=== PATIENT | female | born 1965 | race Caucasian/White ===

== ENCOUNTER 2020-01-11 07:41 | Day surgery (SDC) | payer BC ==
[~2020-01-11 07:41] MED LIST: Bupivacaine 0.5% 10 ML SDV ONE; Lactated Ringers 1,000 ML IV SCH; Lidocaine 1% 20 ML MDV ONE
[2020-01-11] MEDS ORDERED: Propofol 200 MG/20 ML SDV ONE (07:50)
[2020-01-11] MEDS ORDERED: fentaNYL 100 MCG/2 ML SDV ONE (07:50)
[2020-01-11] MEDS ORDERED: Ondansetron 4 MG/2 ML SDV ONE (07:50)
[2020-01-11] MEDS ORDERED: Midazolam 1 MG/ML 2 ML SDV ONE (07:50)
[2020-01-11] MEDS ORDERED: Rocuronium Bromide 50 MG/5 ML Syringe ONE (07:50)
--- NOTE | 2020-01-11 08:18 | PCM.PREANE ---
Preanesthetic Assessment - Anesthesia/Transfusion/Family Hx Anesthesia History: Prior Anesthesia Without Reaction Family History of Anesthesia Reaction: No Transfusion History: No Prior Transfusion(s) - Review of Systems General: No Symptoms Pulmonary: No Symptoms Cardiovascular: No Symptoms Gastrointestinal: No Symptoms Neurological: No Symptoms Other: Reports: None - Physical Assessment NPO Status Date: 01/10/20 Height: 5 ft 7 in Weight: 97.069 kg ASA Class: 2 Mental Status: Alert & Oriented x3 Airway Class: Mallampati = 2 Dentition: Reports: Normal Dentition ROM/Head Extension: Full Lungs: Clear to Auscultation, Normal Respiratory Effort Cardiovascular: Regular Rate, Regular Rhythm - Allergies Allergies/Adverse Reactions: Allergies Allergy/AdvReac Type Severity Reaction Status Date / Time codeine Allergy Itching Verified 01/05/20 14:56 - Blood Blood Available: No - Anesthesia Plan Pre-Op Medication Ordered: None - Acknowledgements Anesthesia Type Planned: General Anesthesia Pt an Appropriate Candidate for the Planned Anesthesia: Yes Alternatives and Risks of Anesthesia Discussed w Pt/Guardian: Yes Pt/Guardian Understands and Agrees with Anesthesia Plan: Yes Additional Comments: pmh: htn, dm2 PreAnesthesia Questionnaire HEENT History: Reports: Other (See Below) Other HEENT History: wears glasses, has upper and lower removable partial dentures Cardiovascular History: Reports: Hypertension Respiratory History: Reports: Asthma, Bronchitis, Recurrent, COPD Other Respiratory History: has not had recurrent bronchitis or COPD and Asthma symptoms since she quit smoking 5 years ago, does not use any inhalers Gastrointestinal History: Reports: GERD, Hiatal Hernia Genitourinary History: Reports: Renal Calculus Other Genitourinary History: hx of passing one stone HOMEBIRTH MIDWIFE History: Reports: Other OB/BYN History: OVARIAN CYST Neurological History: Reports: Other (See Below) Other Neuro History: has "burning" pain in feet after long days at work, was prescribed a medication but doesn't take it Psychiatric History: Reports: Anxiety Endocrine/Metabolic History: Reports: Diabetes, Type II, Obesity/BMI 30+ Oncologic (Cancer) History: Reports: Malignant Melanoma Dermatologic History: Reports: Melanoma - Infectious Disease History Infectious Disease History: Reports: Chicken Pox - Past Surgical History Head Surgeries/Procedures: Reports: None GI Surgical History: Reports: Appendectomy, Colonoscopy Female Surgical History: Reports: Hysterectomy, Other (See Below) Other Female Surgeries/Procedures: hx of pelvic laparoscopy Dermatological Surgical History: Reports: Skin Biopsy - SUBSTANCE USE Smoking Status *Q: Former Smoker Tobacco Use Within Last Twelve Months: No Recreational Drug Use History: No - HOME MEDS Home Medications: Home Meds Zolpidem Tartrate [Zolpidem Tartrate ER] 12.5 mg PO BEDTIME PRN 01/03/15 [History] Metoprolol Succinate [Toprol XL 100mg] 100 mg PO BEDTIME 03/03/18 [History] cloNIDine HCL [Catapres] 0.2 mg PO BEDTIME PRN 03/03/18 [History] Amylase/Lipase/Protease [Creon DR 24,000 Unit] 24,000 unit PO TID 01/05/20 [History] Pioglitazone HCl 15 mg PO QAM 01/05/20 [History] - CURRENT (IN HOUSE) MEDS Current Meds: Current Medications Lactated Ringer's (Ringers, Lactated) 1,000 mls @ 125 mls/hr IV ASDIRECTED [place]AL[place] Discontinued Medications Bupivacaine HCl (Sensorcaine-Mpf 0.5%) Confirm Administered Dose 10 ml .ROUTE .STK-MED ONE Stop: 01/11/20 07:21 Fentanyl (Sublimaze) Confirm Administered Dose 100 mcg .ROUTE .STK-MED ONE Stop: 01/11/20 07:51 Lidocaine HCl (Xylocaine 1%) Confirm Administered Dose 20 ml .ROUTE .STK-MED ONE Stop: 01/11/20 07:21 Lidocaine HCl (Xylocaine-Mpf 1%) Confirm Administered Dose 5 ml .ROUTE .STK-MED ONE Stop: 01/11/20 07:51 Midazolam HCl (Versed 1 Mg/Ml) Confirm Administered Dose 2 mg .ROUTE .STK-MED ONE Stop: 01/11/20 07:51 Ondansetron HCl (Zofran) Confirm Administered Dose 4 mg .ROUTE .STK-MED ONE Stop: 01/11/20 07:51 Propofol (Diprivan 20 Ml) Confirm Administered Dose 200 mg .ROUTE .STK-MED ONE Stop: 01/11/20 07:51 Rocuronium Kulm (Rocuronium Kulm) Confirm Administered Dose 50 mg .ROUTE .STK-MED ONE Stop: 01/11/20 07:51
[2020-01-11] MEDS ORDERED: Dexamethasone 4 MG/ML 5 ML MDV ONE (08:38)
[2020-01-11] MEDS ORDERED: Glycopyrrolate 0.2 MG/ML SDV ONE ×2 (08:52)
--- NOTE | 2020-01-11 09:41 | PCM.PREANE ---
Preanesthetic Assessment - Anesthesia/Transfusion/Family Hx Anesthesia History: Prior Anesthesia Without Reaction Family History of Anesthesia Reaction: No Transfusion History: No Prior Transfusion(s) - Review of Systems General: No Symptoms Pulmonary: No Symptoms Cardiovascular: No Symptoms Gastrointestinal: No Symptoms Neurological: No Symptoms Other: Reports: None - Physical Assessment NPO Status Date: 01/10/20 Vital Signs: Last Vital Signs Temp 97.8 F 01/11/20 09:33 Pulse 75 01/11/20 09:33 Resp 12 01/11/20 09:33 BP 159/89 H 01/11/20 09:33 Pulse Ox 95 01/11/20 09:33 Height: 5 ft 7 in Weight: 97.069 kg ASA Class: 2 Mental Status: Alert & Oriented x3 Airway Class: Mallampati = 2 Dentition: Reports: Normal Dentition ROM/Head Extension: Full Lungs: Clear to Auscultation, Normal Respiratory Effort Cardiovascular: Regular Rate, Regular Rhythm - Allergies Allergies/Adverse Reactions: Allergies Allergy/AdvReac Type Severity Reaction Status Date / Time codeine Allergy Itching Verified 01/05/20 14:56 - Blood Blood Available: No - Anesthesia Plan Pre-Op Medication Ordered: None - Acknowledgements Anesthesia Type Planned: General Anesthesia Pt an Appropriate Candidate for the Planned Anesthesia: Yes Alternatives and Risks of Anesthesia Discussed w Pt/Guardian: Yes Pt/Guardian Understands and Agrees with Anesthesia Plan: Yes Additional Comments: PMH: hx MRSA in 2011, htn, ckd3 with egfr of 36, anxiety, chronic pain PLAN: ga/lma PreAnesthesia Questionnaire HEENT History: Reports: Other (See Below) Other HEENT History: wears glasses, has upper and lower removable partial dentures Cardiovascular History: Reports: Hypertension Respiratory History: Reports: Asthma, Bronchitis, Recurrent, COPD Other Respiratory History: has not had recurrent bronchitis or COPD and Asthma symptoms since she quit smoking 5 years ago, does not use any inhalers Gastrointestinal History: Reports: GERD, Hiatal Hernia Genitourinary History: Reports: Renal Calculus Other Genitourinary History: hx of passing one stone 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 History: Reports: Other OB/BYN History: OVARIAN CYST Neurological History: Reports: Other (See Below) Other Neuro History: has "burning" pain in feet after long days at work, was prescribed a medication but doesn't take it Psychiatric History: Reports: Anxiety Endocrine/Metabolic History: Reports: Diabetes, Type II, Obesity/BMI 30+ Oncologic (Cancer) History: Reports: Malignant Melanoma Dermatologic History: Reports: Melanoma - Infectious Disease History Infectious Disease History: Reports: Chicken Pox - Past Surgical History Head Surgeries/Procedures: Reports: None GI Surgical History: Reports: Appendectomy, Colonoscopy Female Surgical History: Reports: Hysterectomy, Other (See Below) Other Female Surgeries/Procedures: hx of pelvic laparoscopy Dermatological Surgical History: Reports: Skin Biopsy - SUBSTANCE USE Smoking Status *Q: Former Smoker Tobacco Use Within Last Twelve Months: No Recreational Drug Use History: No - HOME MEDS Home Medications: Home Meds Zolpidem Tartrate [Zolpidem Tartrate ER] 12.5 mg PO BEDTIME PRN 01/03/15 [History] Metoprolol Succinate [Toprol XL 100mg] 100 mg PO BEDTIME 03/03/18 [History] cloNIDine HCL [Catapres] 0.2 mg PO BEDTIME PRN 03/03/18 [History] Amylase/Lipase/Protease [Creon DR 24,000 Unit] 24,000 unit PO TID 01/05/20 [History] Pioglitazone HCl 15 mg PO QAM 01/05/20 [History] - CURRENT (IN HOUSE) MEDS Current Meds: Current Medications Lactated Ringer's (Ringers, Lactated) 1,000 mls @ 125 mls/hr IV ASDIRECTED [facility], 1928–1983 Last Admin: 01/11/20 08:29 Dose: 125 mls/hr Documented by: Discontinued Medications Bupivacaine HCl (Sensorcaine-Mpf 0.5%) Confirm Administered Dose 10 ml .ROUTE .STK-MED ONE Stop: 01/11/20 07:21 Dexamethasone (Dexamethasone) Confirm Administered Dose 20 mg .ROUTE .STK-MED ONE Stop: 01/11/20 08:39 Fentanyl (Sublimaze) Confirm Administered Dose 100 mcg .ROUTE .STK-MED ONE Stop: 01/11/20 07:51 Glycopyrrolate (Robinul) Confirm Administered Dose 0.2 mg .ROUTE .STK-MED ONE Stop: 01/11/20 08:53 Glycopyrrolate (Robinul) Confirm Administered Dose 0.2 mg .ROUTE .STK-MED ONE Stop: 01/11/20 08:53 Lidocaine HCl (Xylocaine 1%) Confirm Administered Dose 20 ml .ROUTE .STK-MED ONE Stop: 01/11/20 07:21 Lidocaine HCl (Xylocaine-Mpf 1%) Confirm Administered Dose 5 ml .ROUTE .STK-MED ONE Stop: 01/11/20 07:51 Midazolam HCl (Versed 1 Mg/Ml) Confirm Administered Dose 2 mg .ROUTE .STK-MED ONE Stop: 01/11/20 07:51 Ondansetron HCl (Zofran) Confirm Administered Dose 4 mg .ROUTE .STK-MED ONE Stop: 01/11/20 07:51 Propofol (Diprivan 20 Ml) Confirm Administered Dose 200 mg .ROUTE .STK-MED ONE Stop: 01/11/20 07:51 Rocuronium [place] (Rocuronium [place]) Confirm Administered Dose 50 mg .ROUTE .STK-MED ONE Stop: 01/11/20 07:51
[2020-01-11] MEDS ORDERED: Morphine 10 MG/ML Syringe IVPUSH PRN (09:43)
[2020-01-11] MEDS ORDERED: Ketorolac 10 MG Tab PO PRN (09:43)
[2020-01-11] MEDS ORDERED: Ondansetron 4 MG/2 ML SDV IVPUSH PRN (09:43)
[2020-01-11] MEDS ORDERED: Lactated Ringers 1,000 ML IV SCH (09:45)
--- NOTE | 2020-01-11 09:49 | PCM.OPNOTE ---
- General Post-Op/Procedure Note Date of Surgery/Procedure: 01/11/20 Operative Procedure(s): Wide local excision, superficial spreading melanoma of the left buttock. Layered 9 cm closure. 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
[2020-01-11] MEDS ORDERED: Ketorolac 30 MG/ML SDV IVPUSH ONE (10:10)
[2020-01-11] MEDS ORDERED: Acetaminophen 1,000 MG in Premix Bag 1 BAG IV ONE (10:10)
[2020-01-11] MEDS ORDERED: oxyCODONE 5 MG Tab PO ONE (11:08)
[2020-01-11] MEDS ORDERED: oxyCODONE ER 10 MG TAB.ER ONE (11:12)
--- NOTE | 2020-01-11 11:50 | PCM48HPAN ---
Post Anesthesia Note - EVALUATION WITHIN 48HRS OF ANESTHETIC Vital Signs in Normal Range: Yes Patient Participated in Evaluation: Yes Respiratory Function Stable: Yes Airway Patent: Yes Cardiovascular Function Stable: Yes Hydration Status Stable: Yes Pain Control Satisfactory: Yes Nausea and Vomiting Control Satisfactory: Yes Mental Status Recovered: Yes Vital Signs: Last Vital Signs Temp 97.8 F 01/11/20 09:33 Pulse 66 01/11/20 09:58 Resp 14 01/11/20 09:58 BP 136/79 01/11/20 09:58 Pulse Ox 97 01/11/20 09:58
--- NOTE | 2020-01-11 11:50 | PCM.POSTAN ---
POST ANESTHESIA ASSESSMENT - MENTAL STATUS Mental Status: Alert, Oriented - VITAL SIGNS Vital Signs: Last Vital Signs Temp 97.8 F 01/11/20 09:33 Pulse 66 01/11/20 09:58 Resp 14 01/11/20 09:58 BP 136/79 01/11/20 09:58 Pulse Ox 97 01/11/20 09:58 - RESPIRATORY Respiratory Status: Respiratory Rate WNL, Airway Patent, O2 Saturation Stable - CARDIOVASCULAR CV Status: Pulse Rate WNL, Blood Pressure Stable - GASTROINTESTINAL GI Status: No Symptoms - POST OP HYDRATION Hydration Status: Adequate & Stable
[2020-01-11 12:52] VITALS: BP 112/73; PULSE 64
[2020-01-11] MEDS ORDERED: Neomycin/Polymyxin B Bladder Irrigation 1 ML Amp ONE (13:24)
--- NOTE | 2020-01-11 16:20 | OR ---
SURGEON: Jayson Sanders M.D. DATE OF PROCEDURE: 01/11/2020 OPERATION PERFORMED: Wide local excision, superficial spreading melanoma, left buttock. PRIMARY SURGEON: Jayson Sanders M.D. DRY CLEANER PRESSER: Prop Making Supervisor: TEO Esquivel student. ANESTHESIA: General endotracheal. ASA CLASSIFICATION: 2. PREOPERATIVE DIAGNOSIS: Biopsy-proven superficial spreading melanoma. POSTOPERATIVE DIAGNOSIS: Biopsy-proven superficial spreading melanoma. ESTIMATED BLOOD LOSS: 10 mL. INTRAOPERATIVE FLUID REPLACEMENT: 700 mL of crystalloid. DESCRIPTION OF PROCEDURE: The patient was taken to the operating room and kept on the transfer cart in the supine position. Time-out was called for appropriate identification of patient and procedure. The surgical site had been marked prior to the patient entering the operating room. Following satisfactory attainment of general endotracheal anesthesia, the patient was placed in the prone position with care taken to use axillary rolls and pad all bony prominences. The surgical site was then prepped with Betadine solution and sterile drapes were applied. Skin incisions were marked out in both a horizontal and vertical fashion. It was felt that the horizontal incision would give us a better closure. The skin was now infiltrated with 10 mL of 0.5% Marcaine solution. Skin incision was then made in an elliptical fashion to include a 1 cm margin superiorly and inferiorly. The total width of the incision was therefore 3 cm, with a length of 9 cm. Full- thickness skin and subcutaneous excision was accomplished using sharp dissection and electrocautery. Once the specimen was removed, this was marked with a 2-0 silk suture at the superior margin for identification purposes. With that accomplished, the wound was inspected for hemostasis and bleeding sites were electrocoagulated. The incision was irrigated with sterile saline solution. The wound was then closed in a layered fashion approximating the subcutaneous tissue with interrupted 2-0 Vicryl and the skin with interrupted 3-0 nylon sutures. The wound was then dressed with a sterile Tegaderm pad. Sponge, needle, and instrument counts were all correct. The patient was returned to the transfer cart to the supine position. Following emergence from anesthesia and extubation, she was taken to recovery room in stable condition. JOHN / MARIA GUADALUPE /[id number]
== END 2020-01-11 12:15 | disposition home or self-care (01) ==
LOC: MW.SDS 07:41
PROVIDERS: ATTEND Surgery
DX: C43.59 Malignant melanoma of other part of trunk (principal); Z98.890 Other specified postprocedural states; Z79.899 Other long term (current) drug therapy; Z87.891 Personal history of nicotine dependence; Z90.49 Acquired absence of other specified parts of digestive tract; Z02.82 Encounter for adoption services; Z88.5 Allergy status to narcotic agent; I12.9 Hypertensive chronic kidney disease with stage 1 through stage 4 chronic kidney disease, or unspecified chronic kidney disease; E11.22 Type 2 diabetes mellitus with diabetic chronic kidney disease; N18.30 Chronic kidney disease, stage 3 unspecified; F41.9 Anxiety disorder, unspecified; E66.9 Obesity, unspecified; J44.9 Chronic obstructive pulmonary disease, unspecified; Z68.31 Body mass index [BMI] 31.0-31.9, adult
CPT/HCPCS: 11606; 12034; 88305; A9270; J0131; J1100; J1885; J2001; J2250; J2270; J2704; J3010; J3490; J7120; 00300; J2405

== ENCOUNTER 2020-01-23 19:16 | Emergency (ER) | payer BC ==
[2020-01-23 19:43] VITALS: BP 174/76; PULSE 67
[2020-01-23] MEDS ORDERED: Acetaminophen/HYDROcodone 325-5 MG Tab PO ONE (20:25)
--- NOTE | 2020-01-23 20:33 | EDM.PDOC ---
ED HPI GENERAL MEDICAL PROBLEM - General Chief Complaint: Skin Complaint Stated Complaint: wound check Time Seen by Provider: 01/23/20 20:13 - History of Present Illness INITIAL COMMENTS - FREE TEXT/NARRATIVE: CHIEF COMPLAINT(S): Wound evaluation HISTORY OF PRESENT ILLNESS: This is a 54-year-old woman with a past medical history of melanoma status post surgical removal recently who comes to the emergency department with a chief complaint of wound evaluation. The patient states that approximately 3 days ago her sutures were removed and then approximately 2 days ago she noticed that her wound had opened up. She states that she followed up with her surgeon Dr. Kat who stated that that was okay at that time. She states that she returns to the emergency department today for evaluation as she realized that the wound had opened up more and that she is experiencing pain. She states that she is taking Dozier at home for pain relief which does bring the pain down. She denies any purulent drainage, surrounding erythema, fever, or chills. REVIEW OF SYSTEMS: Constitutional: Denies fever, chills. Eyes: Denies eye pain Ears, Nose, Mouth, & Throat: Denies earache Cardiovascular: Denies chest pain Respiratory: Denies shortness of breath Gastrointestinal: Denies Nausea, vomiting, diarrhea, hematochezia. Genitourinary: Denies hematuria Skin: Positive for postsurgical open wound and pain Neurological: Denies blurred vision Psychiatric: Denies depression PAST MEDICAL HISTORY: As per history of present illness and as reviewed below otherwise noncontributory. SURGICAL HISTORY: As per history of present illness and as reviewed below otherwise noncontributory. SOCIAL HISTORY: As per history of present illness and as reviewed below otherwise noncontributory. FAMILY HISTORY: As per history of present illness and as reviewed below otherwise noncontributory. EXAMINATION OF ORGAN SYSTEMS/BODY AREAS: Constitutional: Blood pressure was 174/76, heart rate 67, respiratory rate 18 with an oxygen saturation 96% on room air. Temperature 35.6 General: Overall well-appearing woman who is in no acute distress Psychiatric: Appropriate mood and affect. Eyes: No scleral icterus or conjunctival erythema ENMT: Moist mucous membranes. No pharyngeal erythema Cardiovascular: Regular, rate, and rythym. No gallops, murmurs, or rubs. Respiratory: Lungs clear to auscultation bilaterally. No wheezes, rales, or r honchi. Gastrointestinal: Soft, non-tender, non-distended. Normoactive bowel sounds wound was inspected with RN eric present. There is a wound on the patient's left upper buttocks with a central area that is open without any bone exposed. This open area measures approximately 2 cm x 1 cm. No purulent drainage or fluctuance is present. There is a dressing with clear/yellowish fluid on it. No surrounding erythema. The bilateral distal ends of the wound appear to be well-healed with a suture scar. Genitourinary: No suprapubic tenderness Musculoskeletal: Normal range of motion. Skin: No lesions or abrasions. Neurological: Alert, GCS 15 MEDICAL DECISION MAKING AND COURSE IN THE ED WITH INTERPRETATION/REVIEW OF DIAGNOSTIC STUDIES: This is a 54-year-old woman man with a recent melanoma excision who comes to the emergency department with open wound without any evidence of fluctuance, surrounding erythema. The patient is not tachycardic and is afebrile without any evidence of infection. I did contact the patient's surgeon regarding the open wound. We did have a discussion and he stated that this can be normal given that he had to do a pretty large removal and does not r ecommend antibiotics. He recommends new gauze to be placed into the wound, air drying it 4 times a day, and pain medications as needed. He states that she does have appointment on Saturday however she can come to the clinic 1 day early for evaluation. I did have a discussion with the patient regarding this plan and she is amenable to this plan. We did pack the patient's wound and placed a new bandage. The patient was amenable to discharge and had no further questions. DISPOSITION: The patient was discharged home in stable condition. The patient will follow up with Dr. Kat in approximately 2 days CONDITION: Fair PROCEDURES: None FINAL IMPRESSION(S)/DIAGNOSES: 1. Acute encounter for postoperative wound evaluation Kt Dick M.D. buttock Pain Score (Numeric/FACES): 5 - Related Data Allergies Allergy/AdvReac Type Severity Reaction Status Date / Time codeine Allergy Itching Verified 01/05/20 14:56 Home Meds: Home Meds Zolpidem Tartrate [Zolpidem Tartrate ER] 12.5 mg PO BEDTIME PRN 01/03/15 [History] Metoprolol Succinate [Toprol XL 100mg] 100 mg PO BEDTIME 03/03/18 [History] cloNIDine HCL [Catapres] 0.2 mg PO BEDTIME PRN 03/03/18 [History] Amylase/Lipase/Protease [Manohar BUSTAMANTE 24,000 Unit] 24,000 unit PO TID 01/05/20 [History] Pioglitazone HCl 30 mg PO QAM 01/05/20 [History] Hydrocodone/Acetaminophen [Hydrocodone-Acetamin 5-325 mg] 1 tab PO ASDIRECTED PRN 01/23/20 [History] Past Medical History HEENT History: Reports: Other (See Below) Other HEENT History: wears glasses, has upper and lower removable partial dentures Cardiovascular History: Reports: Hypertension Respiratory History: Reports: Asthma, Bronchitis, Recurrent, COPD Other Respiratory History: has not had recurrent bronchitis or COPD and Asthma symptoms since she quit smoking 5 years ago, does not use any inhalers Gastrointestinal History: Reports: GERD, Hiatal Hernia Genitourinary History: Reports: Renal Calculus Other Genitourinary History: hx of passing one stone MID LEVEL PROVIDER History: Reports: Other MID LEVEL PROVIDER History: OVARIAN CYST Neurological History: Reports: Other (See Below) Other Neuro History: has "burning" pain in feet after long days at work, was prescribed a medication but doesn't take it Psychiatric History: Reports: Anxiety Endocrine/Metabolic History: Reports: Diabetes, Type II, Obesity/BMI 30+ Oncologic (Cancer) History: Reports: Malignant Melanoma Dermatologic History: Reports: Melanoma - Infectious Disease History Infectious Disease History: Reports: Chicken Pox - Past Surgical History Head Surgeries/Procedures: Reports: None GI Surgical History: Reports: Appendectomy, Colonoscopy Female Surgical History: Reports: Hysterectomy, Other (See Below) Other Female Surgeries/Procedures: hx of pelvic laparoscopy Dermatological Surgical History: Reports: Skin Biopsy Social & Family History - Family History Family Medical History: Noncontributory - Tobacco Use Tobacco Use Status *Q: Former Tobacco User Used Tobacco, but Quit: Yes Month/Year Tobacco Last Used: 01/06/2015 - Caffeine Use Caffeine Use: Reports: Tea - Recreational Drug Use Recreational Drug Use: No ED ROS GENERAL - Review of Systems Review Of Systems: See Below ED EXAM, SKIN/RASH Exam: See Below Course - Vital Signs Last Recorded V/S: Last Vital Signs Temp 35.6 C L 01/23/20 19:31 Pulse 67 01/23/20 19:31 Resp 18 01/23/20 19:31 BP 174/76 H 01/23/20 19:31 Pulse Ox 96 01/23/20 19:31 - Orders/Labs/Meds Meds: Medications Discontinued Medications Generic Name Dose Route Start Last Admin Trade Name Nell PRN Reason Stop Dose Admin Hydrocodone Bitart/Acetaminophen 1 tab 01/23/20 20:25 01/23/20 20:33 Dozier 325-5 Mg PO 01/23/20 20:26 1 tab ONETIME ONE Administration Departure - Departure Time of Disposition: 20:26 Disposition: Home, Self-Care 01 Clinical Impression: Postoperative complication of skin involving drainage from surgical wound - Discharge Information *PRESCRIPTION DRUG MONITORING PROGRAM REVIEWED*: No *COPY OF PRESCRIPTION DRUG MONITORING REPORT IN PATIENT BRYANNA: No Instructions: Excision of Skin Lesions, Care After Referrals: Lakisha Davenport DO [Primary Care Provider] - Forms: ED Department Discharge Additional Instructions: The patient is informed of any results of their evaluation and diagnostic workup and all questions are answered. They are given discharge instructions and return precautions. The patient is stable for discharge. The patient states they understand and agree with the plan and that they will return if their symptoms get worse or if they have any new concerns. The following information is given to patients seen in the emergency department who are being discharged to home. This information is to outline your options for follow-up care. We provide all patients seen in our emergency department with a follow-up referral. The need for follow-up, as well as the timing and circumstances, are variable depending upon the specifics of your emergency department visit. If you don't have a primary care physician on staff, we will provide you with a referral. We always advise you to contact your personal physician following an emergency department visit to inform them of the circumstance of the visit and for follow-up with them and/or the need for any referrals to a consulting specialist. The emergency department will also refer you to a specialist when appropriate. This referral assures that you have the opportunity for follow-up care with a specialist. All of these measure are taken in an effort to provide you with optimal care, which includes your follow-up. Under all circumstances we always encourage you to contact your private physician who remains a resource for coordinating your care. When calling for follow-up care, please make the office aware that this follow-up is from your recent emergency room visit. If for any reason you are refused follow-up, please contact the [facility] Emergency Department at and asked to speak to the emergency department charge nurse. PLEASE FOLLOW UP WITH DR. KAT ON 01/25/20 at 10AM. RETURN WITH ANY NEW OR WORSENING SYMPTOMS Sepsis Event Note (ED) - Evaluation Sepsis Screening Result: No Definite Risk - Focused Exam Vital Signs: Vital Signs Temp Pulse Resp BP Pulse Ox 01/23/20 19:31 35.6 C L 67 18 174/76 H 96
== END 2020-01-23 20:41 | disposition home or self-care (01) ==
LOC: MW.ED 19:16
DX: L76.82 Other postprocedural complications of skin and subcutaneous tissue (principal); I10 Essential (primary) hypertension; J44.9 Chronic obstructive pulmonary disease, unspecified; E11.9 Type 2 diabetes mellitus without complications; E66.9 Obesity, unspecified; Z79.84 Long term (current) use of oral hypoglycemic drugs; Z88.5 Allergy status to narcotic agent; Z79.899 Other long term (current) drug therapy; Z87.891 Personal history of nicotine dependence
CPT/HCPCS: 99283; A9270; 99282

== ENCOUNTER 2020-12-20 19:59 | Observation (INO) | payer BC ==
[2020-12-20] MEDS ORDERED: Sodium Chloride 0.9% 2.5 ML Syringe FLUSH PRN (20:00)
[2020-12-20] MEDS ORDERED: Sodium Chloride 0.9% 10 ML Syringe FLUSH PRN (20:00)
--- NOTE | 2020-12-20 20:02 | EDM.PDOC ---
ED HPI GENERAL MEDICAL PROBLEM - General Stated Complaint: CHEST PAIN Time Seen by Provider: 12/20/20 19:59 Source of Information: Reports: Patient History Limitations: Reports: No Limitations - History of Present Illness INITIAL COMMENTS - FREE TEXT/NARRATIVE: 55-year-old female with history of HTN, DM presents with chest pain. Chest pain is localized to the left chest, described as dull aching sensation that is intermittent over the past 2 weeks. She also notes intermittent tingling sensation to the left neck last seconds. She notes increasing frequency to her left-sided chest pain over the past 2 weeks. Associated symptoms include shortness of breath, dyspnea on exertion, palpitation, nausea and sweats. She denies vomiting, back pain, abdominal pain. She has never undergone a stress te st. She used to smoke 1.5 PPD for 40 years but she quit 6 years ago. 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 ROS: A 10-point review of systems, other than pertinent positives and negatives as stated per HPI, is otherwise negative Past medical history: No additional pertinent history Past Surgical history: No additional pertinent history Social history: No additional pertinent history Family history: No additional pertinent history PHYSICAL EXAM General: AOx4, GCS = 15, No distress HEENT: dry mucous membrane Neck: supple, no meningismus, no Kernig or Brudzinski Cardiac: S1S2 RRR Respiratory: CTAB, no crackles or rales, no wheezing Abdomen: Soft, nontender, no rebound or guarding, nondistended, no pulsatile mass. Back: nontender Musculoskeletal: NVI distally, no deformity Neuro: No focal deficits, CN 2 - 12 WNL. - Related Data Allergies Allergy/AdvReac Type Severity Reaction Status Date / Time codeine Allergy Itching Verified 01/05/20 14:56 Home Meds: Home Meds Zolpidem Tartrate [Zolpidem Tartrate ER] 12.5 mg PO BEDTIME PRN 01/03/15 [History] Metoprolol Succinate [Toprol XL 100mg] 100 mg PO BEDTIME 03/03/18 [History] cloNIDine HCL [Catapres] 0.2 mg PO BEDTIME PRN 03/03/18 [History] Amylase/Lipase/Protease [Creon DR 24,000 Unit] 24,000 unit PO TID 01/05/20 [History] Pioglitazone HCl 30 mg PO QAM 01/05/20 [History] Hydrocodone/Acetaminophen [Hydrocodone-Acetamin 5-325 mg] 1 tab PO ASDIRECTED PRN 01/23/20 [History] Past Medical History HEENT History: Reports: Other (See Below) Other HEENT History: wears glasses, has upper and lower removable partial dentures Cardiovascular History: Reports: Hypertension Respiratory History: Reports: Asthma, Bronchitis, Recurrent, COPD Other Respiratory History: has not had recurrent bronchitis or COPD and Asthma symptoms since she quit smoking 5 years ago, does not use any inhalers Gastrointestinal History: Reports: GERD, Hiatal Hernia Genitourinary History: Reports: Renal Calculus Other Genitourinary History: hx of passing one stone 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 DATA CENTER ENGINEER History: OVARIAN CYST Neurological History: Reports: Other (See Below) Other Neuro History: has "burning" pain in feet after long days at work, was prescribed a medication but doesn't take it Psychiatric History: Reports: Anxiety Endocrine/Metabolic History: Reports: Diabetes, Type II, Obesity/BMI 30+ Oncologic (Cancer) History: Reports: Malignant Melanoma Dermatologic History: Reports: Melanoma - Infectious Disease History Infectious Disease History: Reports: Chicken Pox - Past Surgical History Head Surgeries/Procedures: Reports: None GI Surgical History: Reports: Appendectomy, Colonoscopy Female Surgical History: Reports: Hysterectomy, Other (See Below) Other Female Surgeries/Procedures: hx of pelvic laparoscopy Dermatological Surgical History: Reports: Skin Biopsy Social & Family History - Family History Family Medical History: No Pertinent Family History - Caffeine Use Caffeine Use: Reports: Tea ED ROS GENERAL - Review of Systems Review Of Systems: See Below (see dictation) ED EXAM, GENERAL - Physical Exam Exam: See Below (see dictation) #1 Interpretation EKG Interpretation Comments: Heart rate = 81 bpm, normal sinus rhythm, T wave inversion in III, normal QRS interval, no STEMI. EKG and rhythm strip interpreted by me at 1999 Course - Vital Signs Last Recorded V/S: Last Vital Signs Temp 97.3 F 12/20/20 20:02 Pulse 85 12/20/20 21:10 Resp 16 12/20/20 21:10 BP 129/60 12/20/20 21:10 Pulse Ox 96 12/20/20 21:10 - Orders/Labs/Meds Orders: Active Orders 24 hr Category Date Time Status Cardiac Monitoring [RC] . DIRECTED Care 12/20/20 20:00 Active Pulse Oximetry [RC] ASDIRECTED Care 12/20/20 20:00 Active B-TYPE NATRIURETIC PEPTIDE,BNP [CHEM] Stat Lab 12/20/20 20:12 Received Sodium Chloride 0.9% [Saline Flush] Med 12/20/20 20:00 Active 10 ml FLUSH ASDIRECTED PRN Sodium Chloride 0.9% [Saline Flush] Med 12/20/20 20:00 Active 2.5 ml FLUSH ASDIRECTED PRN Saline Lock Insert [OM.PC] Stat Oth 12/20/20 20:00 Ordered Medication Orders Sodium Chloride (Sodium Chloride 0.9% 10 Ml Syringe) 10 ml FLUSH ASDIRECTED PRN PRN Reason: Keep Vein Open Last Admin: 12/20/20 20:31 Dose: 10 ml Documented by: BRANDON Sodium Chloride (Sodium Chloride 0.9% 2.5 Ml Syringe) 2.5 ml FLUSH ASDIRECTED PRN PRN Reason: Keep Vein Open Last Admin: 12/20/20 20:30 Dose: 2.5 ml Documented by: BRANDON Labs: Laboratory Tests 12/20/20 12/20/20 12/20/20 Range/Units 20:12 20:12 20:12 WBC 7.30 (4.0-11.0) K/uL RBC 4.87 (4.30-5.90) M/uL Hgb 14.7 (12.0-16.0) g/dL Hct 42.2 (36.0-46.0) % MCV 86.7 (80.0-98.0) fL MCH 30.2 (27.0-32.0) pg MCHC 34.8 (31.0-37.0) g/dL RDW Std Deviation 42.0 (28.0-62.0) fl RDW Coeff of Lori 13 (11.0-15.0) % Plt Count 162 (150-400) K/uL MPV 12.10 H (7.40-12.00) fL Neut % (Auto) 52.7 (48.0-80.0) % Lymph % (Auto) 39.6 (16.0-40.0) % [place] % (Auto) 5.6 (0.0-15.0) % Eos % (Auto) 1.8 (0.0-7.0) % Baso % (Auto) 0.3 (0.0-1.5) % Neut # (Auto) 3.9 (1.4-5.7) K/uL Lymph # (Auto) 2.9 H (0.6-2.4) K/uL [place] # (Auto) 0.4 (0.0-0.8) K/uL Eos # (Auto) 0.1 (0.0-0.7) K/uL Baso # (Auto) 0.0 (0.0-0.1) K/uL Nucleated RBC % 0.0 /100WBC Nucleated RBCs # 0 K/uL INR 1.04 Sodium 140 (136-145) mmol/L Potassium 3.6 (3.5-5.1) mmol/L Chloride 102 (98-107) mmol/L Carbon Dioxide 26.3 (21.0-32.0) mmol/L BUN 7 (7.0-18.0) mg/dL Creatinine 0.9 (0.6-1.0) mg/dL Est Cr Clr Drug Dosing 67.07 mL/min Estimated GFR (MDRD) > 60.0 ml/min Glucose 141 H (74-106) mg/dL Calcium 9.5 (8.5-10.1) mg/dL Total Bilirubin 0.6 (0.2-1.0) mg/dL AST 41 H (15-37) IU/L ALT 64 H (14-63) IU/L Alkaline Phosphatase 114 (46-116) U/L Troponin I < 0.050 (0.000-0.056) ng/mL Total Protein 7.5 (6.4-8.2) g/dL Albumin 4.3 (3.4-5.0) g/dL Globulin 3.2 (2.6-4.0) g/dL Albumin/Globulin Ratio 1.3 (0.9-1.6) SARS-CoV-2 RNA (MARTIN) (NEGATIVE) 12/20/20 Range/Units 20:25 WBC (4.0-11.0) K/uL RBC (4.30-5.90) M/uL Hgb (12.0-16.0) g/dL Hct (36.0-46.0) % MCV (80.0-98.0) fL MCH (27.0-32.0) pg MCHC (31.0-37.0) g/dL RDW Std Deviation (28.0-62.0) fl RDW Coeff of Lori (11.0-15.0) % Plt Count (150-400) K/uL MPV (7.40-12.00) fL Neut % (Auto) (48.0-80.0) % Lymph % (Auto) (16.0-40.0) % [place] % (Auto) (0.0-15.0) % Eos % (Auto) (0.0-7.0) % Baso % (Auto) (0.0-1.5) % Neut # (Auto) (1.4-5.7) K/uL Lymph # (Auto) (0.6-2.4) K/uL [place] # (Auto) (0.0-0.8) K/uL Eos # (Auto) (0.0-0.7) K/uL Baso # (Auto) (0.0-0.1) K/uL Nucleated RBC % /100WBC Nucleated RBCs # K/uL INR Sodium (136-145) mmol/L Potassium (3.5-5.1) mmol/L Chloride (98-107) mmol/L Carbon Dioxide (21.0-32.0) mmol/L BUN (7.0-18.0) mg/dL Creatinine (0.6-1.0) mg/dL Est Cr Clr Drug Dosing mL/min Estimated GFR (MDRD) ml/min Glucose (74-106) mg/dL Calcium (8.5-10.1) mg/dL Total Bilirubin (0.2-1.0) mg/dL AST (15-37) IU/L ALT (14-63) IU/L Alkaline Phosphatase (46-116) U/L Troponin I (0.000-0.056) ng/mL Total Protein (6.4-8.2) g/dL Albumin (3.4-5.0) g/dL Globulin (2.6-4.0) g/dL Albumin/Globulin Ratio (0.9-1.6) SARS-CoV-2 RNA (MARTIN) NEGATIVE (NEGATIVE) Meds: Medications Generic Name Dose Route Start Last Admin Trade Name Freq PRN Reason Stop Dose Admin Sodium Chloride 10 ml 12/20/20 20:00 12/20/20 20:31 Sodium Chloride 0.9% 10 Ml Syringe FLUSH 10 ml ASDIRECTED PRN Administration Keep Vein Open Sodium Chloride 2.5 ml 12/20/20 20:00 12/20/20 20:30 Sodium Chloride 0.9% 2.5 Ml Syringe FLUSH 2.5 ml ASDIRECTED PRN Administration Keep Vein Open Discontinued Medications Generic Name Dose Route Start Last Admin Trade Name Freq PRN Reason Stop Dose Admin Aspirin 324 mg 12/20/20 20:20 12/20/20 20:28 Aspirin 81 Mg Tab.Chew PO 12/20/20 20:21 324 mg ONETIME ONE Administration Morphine Sulfate 4 mg 12/20/20 21:40 Morphine 4 Mg/Ml Syringe IVPUSH 12/20/20 21:41 ONETIME ONE Nitroglycerin 0.4 mg 12/20/20 20:20 12/20/20 21:07 Nitroglycerin 0.4 Mg Tab.Sl SL 0.4 mg Q5M PRN Administration Chest Pain - Re-Assessments/Exams Free Text/Narrative Re-Assessment/Exam: 12/20/20 20:26 Ordered 324 ASA and 3 sublingual nitroglycerin for chest pain rated 3/10. 12/20/20 21:[address] Cavazos, who agrees to admit patient. The hospitalist's documentation supersedes all other documentation on this patient with regard to any conflicts or discrepancies from this point forward. Any emergency conditions have been treated to the ability of the ED prior to admission. MEDICAL DECISION MAKING: I reviewed the patients past medical records, lab and radiographic findings. I discussed the case with the patient. My differential diagnosis included: Atypical chest pain, unstable angina, hypertensive emergency. Her hypertension improved after 3 sublingual nitroglycerin, her chest pain improved after nitroglycerin and morphine. Troponin unremarkable chest x-ray unremarkable. Clinical history does not suggest pulmonary embolism. She has no radiating pain to her back, and exhibited symmetrical upper extremity pulses, I personally reviewed her chest x-ray which did not not demonstrate wide mediastinum, I do not suspect aortic dissection. Her abdomen was soft and nontender, I do not suspect intra-abdominal etiology. Departure - Departure Time of Disposition: 21:46 Disposition: Refer to Observation Condition: Good Clinical Impression: Atypical chest pain Hypertension Qualifiers: Hypertension type: essential hypertension Qualified Code(s): I10 - Essential (primary) hypertension - Discharge Information *PRESCRIPTION DRUG MONITORING PROGRAM REVIEWED*: Not Applicable *COPY OF PRESCRIPTION DRUG MONITORING REPORT IN PATIENT BRYANNA: Not Applicable Referrals: Lakisha Davenport DO [Primary Care Provider] - Sepsis Event Note (ED) - Focused Exam Vital Signs: Vital Signs Temp Pulse Resp BP BP Pulse Ox 12/20/20 21:10 85 16 129/60 96 12/20/20 21:07 129/90 12/20/20 20:41 140/90 12/20/20 20:30 147/94 H 12/20/20 20:02 97.3 F 82 18 164/101 H 95 - My Orders Last 24 Hours: My Active Orders 12/20/20 20:00 Cardiac Monitoring [RC] . DIRECTED Pulse Oximetry [RC] ASDIRECTED Sodium Chloride 0.9% [Saline Flush] 10 ml FLUSH ASDIRECTED PRN Sodium Chloride 0.9% [Saline Flush] 2.5 ml FLUSH ASDIRECTED PRN Saline Lock Insert [OM.PC] Stat 12/20/20 20:12 B-TYPE NATRIURETIC PEPTIDE,BNP [CHEM] Stat - Assessment/Plan Last 24 Hours: My Active Orders 12/20/20 20:00 Cardiac Monitoring [RC] . DIRECTED Pulse Oximetry [RC] ASDIRECTED Sodium Chloride 0.9% [Saline Flush] 10 ml FLUSH ASDIRECTED PRN Sodium Chloride 0.9% [Saline Flush] 2.5 ml FLUSH ASDIRECTED PRN Saline Lock Insert [OM.PC] Stat 12/20/20 20:12 B-TYPE NATRIURETIC PEPTIDE,BNP [CHEM] Stat
[2020-12-20] MEDS ORDERED: Aspirin 81 MG Tab.Chew PO ONE (20:20)
[2020-12-20] MEDS: Nitroglycerin 0.4 MG Tab.SL SL PRN ×3 (20:30→21:07)
[2020-12-20 20:41] LABS: BLOOD UREA NITROGEN,BUN 7 mg/dL (7.0-18.0); CARBON DIOXIDE,CO2 26.3 mmol/L (21.0-32.0); CHLORIDE,CL 102 mmol/L (98-107); GLUCOSE RANDOM 141 mg/dL (74-106); POTASSIUM,K 3.6 mmol/L (3.5-5.1); SODIUM,NA 140 mmol/L (136-145)
--- NOTE | 2020-12-20 20:53 | CR ---
Indication: Chest pain Technique: Chest 1 view Comparison: Chest x-ray 03/03/2018 Findings/Impression: Cardiovascular and mediastinum: Heart size and vasculature are normal in caliber and appearance. Lungs and pleural space: Lungs are clear. No sign of infiltrate or mass. No sign of pleural effusion. No pneumothorax. Bones and soft tissues: No acute findings. Dictated by Maged Aiken MD @ 12/20/2020 8:52:22 PM (Electronically Signed)
[2020-12-20] MEDS ORDERED: Morphine 4 MG/ML Syringe IVPUSH ONE (21:40)
--- NOTE | 2020-12-20 23:53 | PCM.HP.2 ---
H&P History of Present Illness - General Date of Service: 12/21/20 Admit Problem/Dx: Admission Diagnosis/Problem Admission Diagnosis/Problem Chest pain - History of Present Illness Initial Comments - Free Text/Narative: 55 yo female who presents to the ED with complaint of chest pain. Patient describes the pain as dull substernal and constant for the past three weeks. Patient reports exertion makes it worse while rest improves it but it never goes away. She believes the symptoms are likely due to the stress at work. - Related Data Allergies/Adverse Reactions: Allergies Allergy/AdvReac Type Severity Reaction Status Date / Time codeine Allergy Itching Verified 12/21/20 00:20 Home Medications: Home Meds Zolpidem Tartrate [Zolpidem Tartrate ER] 12.5 mg PO BEDTIME 01/03/15 [History] Metoprolol Succinate [Toprol XL 100mg] 100 mg PO BEDTIME 03/03/18 [History] cloNIDine HCL [Catapres] 0.2 mg PO BEDTIME 03/03/18 [History] Amylase/Lipase/Protease [Crerandi DR 12,000 Units] 1 cap PO TID 12/20/20 [History] Fluticasone/Umeclidin/Vilanter [Trelegy Ellipta 100-62.5-25] 1 inh INH DAILY 12/20/20 [History] Pregabalin 100 mg PO BEDTIME 12/20/20 [History] glipiZIDE [Glucotrol] 5 mg PO DAILY 12/20/20 [History] Past Medical History HEENT History: Reports: Other (See Below) Other HEENT History: wears glasses, has upper and lower removable partial dentures Cardiovascular History: Reports: Hypertension Respiratory History: Reports: Asthma, Bronchitis, Recurrent, COPD Other Respiratory History: has not had recurrent bronchitis or COPD and Asthma symptoms since she quit smoking 5 years ago, does not use any inhalers Gastrointestinal History: Reports: GERD, Hiatal Hernia Genitourinary History: Reports: Renal Calculus Other Genitourinary History: hx of passing one stone 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 OB/BYN History: OVARIAN CYST Neurological History: Reports: Other (See Below) Other Neuro History: has "burning" pain in feet after long days at work, was prescribed a medication but doesn't take it Psychiatric History: Reports: Anxiety Endocrine/Metabolic History: Reports: Diabetes, Type II, Obesity/BMI 30+ Oncologic (Cancer) History: Reports: Malignant Melanoma Dermatologic History: Reports: Melanoma - Infectious Disease History Infectious Disease History: Reports: Chicken Pox - Past Surgical History Head Surgeries/Procedures: Reports: None HEENT Surgical History: Reports: Tonsillectomy GI Surgical History: Reports: Appendectomy, Colonoscopy Female Surgical History: Reports: Hysterectomy, Other (See Below) Other Female Surgeries/Procedures: hx of pelvic laparoscopy Dermatological Surgical History: Reports: Skin Biopsy Social & Family History - Family History Family Medical History: No Pertinent Family History - Tobacco Use Tobacco Use Status *Q: Former Tobacco User Used Tobacco, but Quit: Yes Month/Year Tobacco Last Used: 2014 - Caffeine Use Caffeine Use: Reports: None - Recreational Drug Use Recreational Drug Use: No H&P Review of Systems - Review of Systems: Review Of Systems: Comprehensive ROS is negative, except as noted in HPI. Exam - Exam Exam: See Below - Vital Signs Vital Signs: Last Vital Signs Temp 36.6 C 12/20/20 22:00 Pulse 82 12/20/20 22:00 Resp 18 12/20/20 22:00 BP 150/88 H 12/20/20 22:00 Pulse Ox 95 12/20/20 22:00 Weight: 88.451 kg - Exam General: Alert, Oriented HEENT: Mucosa Moist & [place] Neck: Supple Lungs: Clear to Auscultation, Normal Respiratory Effort Cardiovascular: Regular Rate, Regular Rhythm GI/Abdominal Exam: Normal Bowel Sounds, Soft, Non-Tender Extremities: Non-Tender, No Pedal Edema Skin: Warm, Dry, Intact Neurological: Cranial Nerves Intact - Patient Data Lab Results Last 24 hrs: Laboratory Results - last 24 hr 12/20/20 12/20/20 12/20/20 Range/Units 20:12 20:12 20:12 WBC 7.30 (4.0-11.0) K/uL RBC 4.87 (4.30-5.90) M/uL Hgb 14.7 (12.0-16.0) g/dL Hct 42.2 (36.0-46.0) % MCV 86.7 (80.0-98.0) fL MCH 30.2 (27.0-32.0) pg MCHC 34.8 (31.0-37.0) g/dL RDW Std Deviation 42.0 (28.0-62.0) fl RDW Coeff of Lori 13 (11.0-15.0) % Plt Count 162 (150-400) K/uL MPV 12.10 H (7.40-12.00) fL Neut % (Auto) 52.7 (48.0-80.0) % Lymph % (Auto) 39.6 (16.0-40.0) % Terry % (Auto) 5.6 (0.0-15.0) % Eos % (Auto) 1.8 (0.0-7.0) % Baso % (Auto) 0.3 (0.0-1.5) % Neut # (Auto) 3.9 (1.4-5.7) K/uL Lymph # (Auto) 2.9 H (0.6-2.4) K/uL Terry # (Auto) 0.4 (0.0-0.8) K/uL Eos # (Auto) 0.1 (0.0-0.7) K/uL Baso # (Auto) 0.0 (0.0-0.1) K/uL Nucleated RBC % 0.0 /100WBC Nucleated RBCs # 0 K/uL INR 1.04 Sodium 140 (136-145) mmol/L Potassium 3.6 (3.5-5.1) mmol/L Chloride 102 (98-107) mmol/L Carbon Dioxide 26.3 (21.0-32.0) mmol/L BUN 7 (7.0-18.0) mg/dL Creatinine 0.9 (0.6-1.0) mg/dL Est Cr Clr Drug Dosing 67.07 mL/min Estimated GFR (MDRD) > 60.0 ml/min Glucose 141 H (74-106) mg/dL Calcium 9.5 (8.5-10.1) mg/dL Total Bilirubin 0.6 (0.2-1.0) mg/dL AST 41 H (15-37) IU/L ALT 64 H (14-63) IU/L Alkaline Phosphatase 114 (46-116) U/L Troponin I < 0.050 (0.000-0.056) ng/mL B-Natriuretic Peptide (<100) PG/ML Total Protein 7.5 (6.4-8.2) g/dL Albumin 4.3 (3.4-5.0) g/dL Globulin 3.2 (2.6-4.0) g/dL Albumin/Globulin Ratio 1.3 (0.9-1.6) SARS-CoV-2 RNA (MARTIN) (NEGATIVE) 12/20/20 12/20/20 Range/Units 20:12 20:25 WBC (4.0-11.0) K/uL RBC (4.30-5.90) M/uL Hgb (12.0-16.0) g/dL Hct (36.0-46.0) % MCV (80.0-98.0) fL MCH (27.0-32.0) pg MCHC (31.0-37.0) g/dL RDW Std Deviation (28.0-62.0) fl RDW Coeff of Lori (11.0-15.0) % Plt Count (150-400) K/uL MPV (7.40-12.00) fL Neut % (Auto) (48.0-80.0) % Lymph % (Auto) (16.0-40.0) % Terry % (Auto) (0.0-15.0) % Eos % (Auto) (0.0-7.0) % Baso % (Auto) (0.0-1.5) % Neut # (Auto) (1.4-5.7) K/uL Lymph # (Auto) (0.6-2.4) K/uL Terry # (Auto) (0.0-0.8) K/uL Eos # (Auto) (0.0-0.7) K/uL Baso # (Auto) (0.0-0.1) K/uL Nucleated RBC % /100WBC Nucleated RBCs # K/uL INR Sodium (136-145) mmol/L Potassium (3.5-5.1) mmol/L Chloride (98-107) mmol/L Carbon Dioxide (21.0-32.0) mmol/L BUN (7.0-18.0) mg/dL Creatinine (0.6-1.0) mg/dL Est Cr Clr Drug Dosing mL/min Estimated GFR (MDRD) ml/min Glucose (74-106) mg/dL Calcium (8.5-10.1) mg/dL Total Bilirubin (0.2-1.0) mg/dL AST (15-37) IU/L ALT (14-63) IU/L Alkaline Phosphatase (46-116) U/L Troponin I (0.000-0.056) ng/mL B-Natriuretic Peptide 10 (<100) PG/ML Total Protein (6.4-8.2) g/dL Albumin (3.4-5.0) g/dL Globulin (2.6-4.0) g/dL Albumin/Globulin Ratio (0.9-1.6) SARS-CoV-2 RNA (MARTIN) NEGATIVE (NEGATIVE) Result Diagrams: 12/20/20 20:12 12/20/20 20:12 Sepsis Event Note - Focused Exam Vital Signs: Vital Signs Temp Pulse Resp BP BP Pulse Ox 12/20/20 22:00 36.6 C 82 18 150/88 H 95 12/20/20 21:10 85 16 129/60 96 12/20/20 21:07 129/90 12/20/20 20:41 140/90 12/20/20 20:30 147/94 H 12/20/20 20:02 36.3 C 82 18 164/101 H 95 Problem List Initiated/Reviewed/Updated: Yes Orders Last 24hrs: Active Orders 24 hr Category Date Time Status Patient Status [ADT] Routine ADT 12/20/20 21:49 Active Cardiac Monitoring [RC] . DIRECTED Care 12/20/20 20:00 Active Pulse Oximetry [RC] ASDIRECTED Care 12/20/20 20:00 Active TROPONIN I [CHEM] Q7H Lab 12/20/20 23:44 Ordered TROPONIN I [CHEM] Q7H Lab 12/21/20 06:44 Ordered Sodium Chloride 0.9% [Saline Flush] Med 12/20/20 20:00 Active 10 ml FLUSH ASDIRECTED PRN Sodium Chloride 0.9% [Saline Flush] Med 12/20/20 20:00 Active 2.5 ml FLUSH ASDIRECTED PRN Saline Lock Insert [OM.PC] Stat Oth 12/20/20 20:00 Ordered Medication Orders Sodium Chloride (Sodium Chloride 0.9% 10 Ml Syringe) 10 ml FLUSH ASDIRECTED PRN PRN Reason: Keep Vein Open Last Admin: 12/20/20 20:31 Dose: 10 ml Documented by: BRANDON Sodium Chloride (Sodium Chloride 0.9% 2.5 Ml Syringe) 2.5 ml FLUSH ASDIRECTED PRN PRN Reason: Keep Vein Open Last Admin: 12/20/20 20:30 Dose: 2.5 ml Documented by: BRANDON Assessment/Plan Comment:: 55 yo female admitted for chest pain. She ruled out for acute coronary syndrome with serial negative cardiac enzymes and EKG. She had no events on telemetry overnight. Her chest pain has resolved. She was discharged home to have follow up with Dr. Schneider and a referral for exercise stress testing.
[2020-12-21] MEDS ORDERED: Metoprolol Succinate 100 MG Tab.ER PO SCH (00:43)
[2020-12-21] MEDS ORDERED: cloNIDine 0.1 MG Tab PO SCH (00:44)
[2020-12-21] MEDS ORDERED: Melatonin 3 MG Tab PO PRN (01:01)
[2020-12-21] MEDS ORDERED: traZODone 50 MG Tab PO PRN (01:03)
[2020-12-21] MEDS ORDERED: Glucagon,Human Recombinant 1 MG Vial IM PRN (01:04)
[2020-12-21] MEDS ORDERED: 50% Dextrose in Water 50 ML Syringe IVPUSH PRN (01:04)
[2020-12-21] MEDS: Insulin Aspart 100 Units/ML 3 ML Pen SUBCUT SCH ×2 (08:56→12:28)
[2020-12-21 13:51] VITALS: BP 132/75; PULSE 47
== END 2020-12-21 15:10 | disposition home or self-care (01) ==
LOC: MW.ED 19:59 → MW.MS 21:49
PROVIDERS: ADMIT Internal Medicine; ATTEND Internal Medicine
DX: R07.9 Chest pain, unspecified (principal); J44.9 Chronic obstructive pulmonary disease, unspecified; K21.9 Gastro-esophageal reflux disease without esophagitis; E11.9 Type 2 diabetes mellitus without complications; E66.9 Obesity, unspecified; I10 Essential (primary) hypertension; Z98.890 Other specified postprocedural states; Z90.49 Acquired absence of other specified parts of digestive tract; Z87.891 Personal history of nicotine dependence; Z88.5 Allergy status to narcotic agent; Z79.899 Other long term (current) drug therapy; Z20.822 Contact with and (suspected) exposure to COVID-19; Z68.34 Body mass index [BMI] 34.0-34.9, adult
CPT/HCPCS: 36415; 71045; 80053; 82947; 83880; 84484; 85025; 85610; 87635; 93005; 96374; 99285; A9270; G0378; J2270; U0002

== ENCOUNTER 2023-01-30 10:50 | Emergency (ER) | payer BC ==
[2023-01-30] MEDS ORDERED: Sodium Chloride 0.9% 2.5 ML Syringe FLUSH PRN (11:02)
[2023-01-30] MEDS ORDERED: Sodium Chloride 0.9% 10 ML Syringe FLUSH PRN (11:02)
[2023-01-30 11:38] LABS: BASOPHILS ABSOLUTE AUTO 0.04 K/uL (0.00-0.20); BASOPHILS PERCENT AUTO 0.7 % (0.0-1.0); EOSINOPHILS ABSOLUTE AUTO 0.13 K/uL (0.00-0.45); EOSINOPHILS PERCENT AUTO 2.4 % (0.0-6.0); HEMATOCRIT 37.7 % (37.0-47.0); HEMOGLOBIN 13.4 g/dL (12.0-16.0); IMMATURE GRAN ABSOLUTE AUTO 0.02 K/uL (0.00-0.05); IMMATURE GRAN PERCENT AUTO 0.4 % (0.0-0.4); LYMPHOCYTES ABSOLUTE AUTO 1.93 K/uL (1.00-4.80); LYMPHOCYTES PERCENT AUTO 35.5 % (24.0-44.0); MEAN CORPUSCULAR HEMOGLOBIN 30.5 pg (28.0-32.0); MEAN CORPUSCULAR HGB CONC 35.5 g/dL (32.0-36.0); MEAN CORPUSCULAR VOLUME 85.9 fL (83.0-99.0); MEAN PLATELET VOLUME 11.9 fL (9.4-12.3); MONOCYTES ABSOLUTE AUTO 0.33 K/uL (0.00-0.80); MONOCYTES PERCENT AUTO 6.1 % (0.0-8.0); NEUTROPHILS ABSOLUTE AUTO 2.98 K/uL (1.80-7.70); NEUTROPHILS PERCENT AUTO 54.9 % (41.0-71.0); PLATELET COUNT,PLT 143 K/uL (150-400); RED BLOOD CELL COUNT 4.39 M/uL (4.10-5.30); WHITE BLOOD CELL COUNT,WBC 5.43 K/uL (3.9-11.3)
[2023-01-30 12:14] LABS: ALBUMIN 3.7 g/dL (3.4-5.0); CALCIUM 9.5 mg/dL (8.5-10.1); CARBON DIOXIDE,CO2 30.2 mmol/L (21.0-32.0); CREATININE 0.8 mg/dL (0.6-1.0); EST CRCL DRUG DOSING (CG) 73.63 mL/min; POTASSIUM,K 4.1 mmol/L (3.5-5.1); PROTEIN TOTAL,TP 6.9 g/dL (6.4-8.2)
[2023-01-30 12:15] LABS: A/G RATIO 1.2 (0.9-1.6); BILIRUBIN TOTAL 0.5 mg/dL (0.2-1.0)
[2023-01-30 14:02] LABS: CALCIUM 9.3 mg/dL (8.5-10.1); CARBON DIOXIDE,CO2 32.2 mmol/L (21.0-32.0); CREATININE 0.7 mg/dL (0.6-1.0); EST CRCL DRUG DOSING (CG) 84.15 mL/min; POTASSIUM,K 4.3 mmol/L (3.5-5.1)
[2023-01-30] MEDS ORDERED: 50% Dextrose in Water 50 ML Syringe IVPUSH ONE (15:14)
[2023-01-30] MEDS ORDERED: Ondansetron 4 MG/2 ML SDV IVPUSH ONE (15:14)
[2023-01-30 17:32] VITALS: BP 131/82; PULSE 81
== END 2023-01-30 17:31 | disposition home or self-care (01) ==
LOC: MW.ED 10:50
DX: T38.3X1A Poisoning by insulin and oral hypoglycemic [antidiabetic] drugs, accidental (unintentional), initial encounter (principal); E66.9 Obesity, unspecified; E11.9 Type 2 diabetes mellitus without complications; K21.9 Gastro-esophageal reflux disease without esophagitis; J44.9 Chronic obstructive pulmonary disease, unspecified; I10 Essential (primary) hypertension; J45.909 Unspecified asthma, uncomplicated; Z88.5 Allergy status to narcotic agent; Z79.4 Long term (current) use of insulin
CPT/HCPCS: 36415; 80048; 80053; 82947; 84484; 85025; 96374; 96375; 99284; J2405; J3490; 93005; 93010